=== PATIENT | male | born 1945 | race Caucasian/White ===

== ENCOUNTER 2020-01-11 07:32 | Inpatient (IN) | payer MEDICARE, OTHER, SELFPAY ==
[2020-01-11] VITALS (23 sets, daily range): BP systolic 119–202; BP diastolic 74–105; PULSE 53–89; RESP 15–27; TEMP 36–36.4; O2SAT 90–96
--- NOTE | ~2020-01-11 | XR_ITS ---
EXAMINATION: XR chest 2V 01/11/2020 08:20 INDICATION: Midsternal chest pain PROCEDURE: AP and lateral views of the chest COMPARISON: 11/04/2014 FINDINGS: The lungs are clear. The cardiomediastinal silhouette is within normal limits. There are no pleural effusions. There is no pneumothorax suspected. Status post median sternotomy for CABG. S evere osteoarthritis of the shoulders. IMPRESSION: 1: NO ACUTE CARDIOPULMONARY DISEASE. Reviewed, dictated and finalized at location [facility].
--- NOTE | 2020-01-11 08:01 | ED.CHESTPAIN ---
HPI - Chest Pain General Chief Complaint: Chest Pain Stated Complaint: CP Time Seen by Provider: 01/11/20 07:35 History of Present Illness HPI narrative: Patient is a 74-year-old male who presents ER with chest pain. Woke up this morning at 6 AM with the chest pain. Its left-sided. Occasionally goes down towards his stomach. It feels similar to when he had heart issues in 2019 that led to his CABG. He has no diaphoresis/nausea/vomiting/shortness of breath. He is found no aggravating or alleviating factors. Reports his blood pressures been running higher in the 130s over 90s recently. Currently systolic blood pressure is 202 mmHg. Related Data Home Medications Medication Instructions Recorded Confirmed aspirin 81 mg tablet,delayed 81 mg PO DAILY 03/27/19 01/11/20 release finasteride 5 mg tablet 5 mg PO DAILY 03/27/19 01/11/20 metoprolol tartrate 25 mg tablet 25 mg PO BID tablet 03/27/19 01/11/20 Allergies Allergy/AdvReac Type Severity Reaction Status Date / Time venom-honey bee Allergy Severe HIVES Verified 01/11/20 08:17 atorvastatin Allergy Unknown Unknown Verified 01/11/20 08:17 Review of Systems Review of Systems: All systems reviewed & are unremarkable except as noted in HPI and below Constitutional: Constitutional: Denies chills, Denies fever(s) and Denies weakness Cardiovascular: Cardiovascular: Reports chest pain and Denies radiating jaw, neck or arm pain Respiratory: Respiratory: Denies cough and Denies dyspnea Gastrointestinal: Gastrointestinal: Reports abdominal pain, Denies nausea and Denies vomiting [facility] Past Medical History Medical History (Updated 01/11/20 @ 17:46 by Ned Chin MD) Benign prostatic hyperplasia with lower urinary tract symptoms Coronary artery disease involving [place] coronary artery of [place] heart Hypertensive heart disease without congestive heart failure Idiopathic chronic gout, unspecified site, without tophus (tophi) LIZA on CPAP Pure hypercholesterolemia Status post placement of bare metal coronary artery stent Surgical History Surgical History S/P CABG (coronary artery bypass graft) Family History Family History Sibling Family history of diabetes mellitus in first degree relative Other Diabetes mellitus Social History Social History (Updated 12/19/19 @ 14:32 by Pura Vallejo) Smoking status: Never smoker Second hand tobacco smoke exposure: No Alcohol intake: current Drinks per week: 8 Substance use: never Substance use type: does not use Gender identity (if verbalized by the patient): Male Spiritual care concerns: No Exam Narrative: Exam Narrative: GENERAL: Well-appearing, well-nourished, and in no acute distress. HEAD: Normocephalic, atraumatic. ENT: Mucous membranes moist. CHEST: Clear to auscultation. No respiratory distress. HEART: Regular rate and rhythm. No murmur heard. Normal peripheral pulses. ABDOMEN: Soft, nontender, nondistended. EXTREMITIES: Normal range of motion. No edema. SKIN: Warm, dry, no rash. NEURO: Alert and oriented x3. Course Course Emergency Course: Blood pressure and chest pain improved with nitroglycerin. Second troponin elevated. Admit to the cardiology service. No heparin recommend at this time. Vital Signs Vital signs: Vital Signs Temperature 97.5 F L 01/11/20 07:45 Pulse Rate 73 01/11/20 07:45 Respiratory Rate 20 01/11/20 07:45 Blood Pressure 202/105 H 01/11/20 07:45 Pulse Oximetry 96 01/11/20 07:45 Temperature 96.8 F L 01/11/20 16:00 Pulse Rate 68 01/11/20 16:00 Respiratory Rate 18 01/11/20 16:00 Blood Pressure 157/85 H 01/11/20 16:00 Pulse Oximetry 95 01/11/20 16:00 MDM - Chest Pain Lab Data Result diagrams: 01/11/20 07:57 01/11/20 07:57 Labs: Lab Results 01/11/20 01/11/20 01/11/20 Range/U
[2020-01-11] MEDS: ASPIRIN 81 MG CHEWABLE TABLET 324 MG PO (08:06)
[2020-01-11] MEDS: NITROGLYCERIN SL 0.4 MG TABLET SUBLINGUAL (08:06)
[2020-01-11 08:19] LABS: Basophils Absolute Auto 0.1 K/mm3 (0.0-0.1); Basophils Percent Auto 0.8 % (0.2-1.2); Eosinophils Absolute Auto 0.2 K/mm3 (0-0.3); Eosinophils Percent Auto 2.6 % (0-4.4); Hematocrit 49.2 % (42.0-52.0); Hemoglobin 16.4 g/dL (14.0-18.0); Immature Granulocyte Absolute 0.02 K/mm3 (0.00-0.031); Immature Granulocyte Percent A 0.3 % (0-0.5); Lymphocytes Absolute Auto 2.52 K/mm3 (0.9-3.2); Lymphocytes Percent Auto 37.9 % (18.3-44.2); Mean Corpuscular HGB Conc 33.3 g/dl (32-36); Mean Corpuscular Hemoglobin 31.6 pg (26-34); Mean Corpuscular Volume 94.8 fl (80-100); Mean Platelet Volume 10.8 fl (7.4-10.4); Monocytes Absolute Auto 0.6 K/mm3 (0.1-0.6); Monocytes Percent Auto 8.9 % (2.6-8.5); Neutrophils Absolute Auto 3.3 K/mm3 (1.3-6.7); Neutrophils Percent Auto 49.5 % (45.5-73.1); Platelet Count Result 228 k/mm3 (150-375); Red Blood Count 5.19 M/mm3 (4.6-6.20); Red Cell Distribution Width 13.3 % (11.5-14.5); White Blood Count 6.7 K/mm3 (4.5-10.0)
[2020-01-11 08:30] LABS: Prothrombin Time 12.5 Seconds (11.1-14.7)
[2020-01-11 08:31] LABS: Alanine Aminotransferase 31 U/L (4-50); Albumin Level 4.4 g/dL (3.5-5.1); Alkaline Phosphatase 49 U/L (38-126); Anion Gap 7 mmol/L (8-16); Aspartate Amino Transferase 32 U/L (17-59); Bilirubin,Total 0.3 mg/dL (0.2-1.3); Blood Urea Nitrogen 27 mg/dL (9-20); Calcium 9.5 mg/dL (8.4-10.2); Carbon Dioxide 26 mmol/L (22-30); Chloride 107 mmol/L (98-107); Estimated CRCL calculation 51 ml/min; Estimated Glomerular Filt Rate 59; Glucose 157 mg/dL (75-110); Lipase 91 U/L (23-300); Partial Thromboplastin Time 25.6 SECONDS (22.3-36.8); Potassium 3.9 mmol/L (3.4-5.0); Sodium 140 mmol/L (137-145)
[2020-01-11 08:42] LABS: Troponin I < 0.012 ng/mL (0.000-0.034)
--- NOTE | 2020-01-11 09:36 | ECG_ITS ---
Measurements Intervals [place] Rate: 68 P: 53 MT: 179 QRS: 17 QRSD: 97 T: 35 QT: 397 QTc: 425 Interpretive Statements SINUS RHYTHM EARLY PRECORDIAL R/S TRANSITION BASELINE WANDER- I, II, AVR, AVL, AVF, V1-V6 BORDERLINE ECG Electronically Signed On 01-11-2020 10:46:23 CDT by Cal Rodriguez D.O.
[2020-01-11 11:32] LABS: Troponin I 0.142 ng/mL (0.000-0.034)
--- NOTE | 2020-01-11 11:40 | ECG_ITS ---
Measurements Intervals [place] Rate: 61 P: 46 NM: 172 QRS: -1 QRSD: 85 T: 24 QT: 419 QTc: 423 Interpretive Statements SINUS RHYTHM EARLY PRECORDIAL R/S TRANSITION BORDERLINE T WAVE ABNORMALITY- INFERIOR LEADS BORDERLINE ECG Electronically Signed On 01-11-2020 12:15:41 CDT by Cal Rodriguez D.O.
--- NOTE | 2020-01-11 13:02 | PM.IMHP ---
H&P: HPI History of Present Illness Date/Time: 01/11/20 13:02 Chief complaint: nstemi,hypertension Narrative: Juvencio Pérez is a 74 year old male With a known history of coronary artery disease established with our practice admitted this afternoon after being seen and evaluated in the emergency room because of an episode of chest pain that occurred earlier today. The patient states that he was in his usual state of good health when this morning he began to experience some retrosternal chest pain that was initially mild and then became moderate to severe over the course of about an hour of observing this at home. He also states that the night before last he had a difficult night because of a poor night sleep he cut does not state he was having any chest pain or dyspnea or any other symptoms at that time but just states that he slept poorly. When he was experiencing the pain this morning though he became concerned because of his history he awakened his who talk about it for a little while and then they decided to come to the emergency room for evaluation. In the emergency department his ECG showed sinus rhythm with some modest nonspecific T-wave changes but no significant ST segment deviation. He was given a nitro lingual tablet which apparently improved and then resolve the symptoms after a short time. He had a troponin level done which was normal the 2nd troponin level however pete out of normal range to 0.1 and the decision was made to admit him to the hospital. I am seeing the patient in the emergency room as he is awaiting for his bed upstairs he is in good spirits feels well and has no other symptoms. Leading up to this event this morning he has been doing well he does not have any history of exertional chest pain in fact he is an active man who states he played golf yesterday and had no difficulty walking the golf course. The patient does have coronary artery disease which was identified in April of 2018. He presented to this hospital with acute coronary syndrome and was found to have diffuse multivessel coronary disease angiographically. He did have modest non flow limiting left main disease as well as calcific disease in the LAD with lesions that were more proximal near a diagonal branch and in the midportion as well. His circumflex had high-grade ostial stenosis but was very small consisting of only 1 small OM branch. The right coronary artery was very large and described as hyper dominant. The right coronary was extensively calcified and had high-grade stenosis in the midportion as well as in the distal portion. left ventricular systolic function was well maintained. He was transferred at that time to [facility] for surgical revascularization. He received a left internal mammary graft to the LAD and a sequential saphenous vein graft to the RPDA and largest RPL branch. The circumflex was very small and not suitable for grafting. Royce I did review his angiograms just before this consultation from April of 2018 he also has some distal small-vessel disease and a more distal RPL branch that was also not grafted. In this setting we are seeing him in consultation. His medical regimen now consists of aspirin, metoprolol and rosuvastatin. Review of Systems Constitutional: Constitutional: Reports no additional constitutional complaints Eyes: Eyes: Reports no additional eye complaints ENT: Reports system reviewed and no additional complaints, except as documented Cardiovascular: Cardiovascular: Reports as per HPI and Reports chest pain Respiratory: Respiratory: Reports no additional respiratory complaints Gastrointestinal: Gastrointestinal: Reports heartburn Musculoskeletal: Musculoskeletal: Reports arthralgias Integumentary/Breasts: Skin/Breast: Reports system reviewed and no additional complaints, except as docu Neurologic: Reports system reviewed and no additional complaints, except as documented [facility]
[2020-01-11 14:24] LABS: Troponin I 0.693 ng/mL (0.000-0.034)
[2020-01-11] MEDS: ISOSORBIDE MONONITRATE 60 MG TAB.ER.24H PO (17:42)
[2020-01-11] MEDS: CLOPIDOGREL BISULFATE 300 MG TABLET PO (17:42)
[2020-01-11] MEDS: METOPROLOL TARTRATE 25 MG TABLET PO (20:32)
[2020-01-12] VITALS (18 sets, daily range): BP systolic 99–131; BP diastolic 64–85; PULSE 58–89; RESP 16–22; TEMP 36.1–36.9; O2SAT 93–99; BMI 34.3
[2020-01-12] MEDS: allopurinoL 100 MG TABLET PO (10:37)
[2020-01-12] MEDS: METOPROLOL TARTRATE 25 MG TABLET PO ×2 (10:38→20:43)
[2020-01-12] MEDS: ASPIRIN 81 MG ENTERIC TABLET PO (10:38)
[2020-01-12] MEDS: ISOSORBIDE MONONITRATE 60 MG TAB.ER.24H PO (10:38)
[2020-01-12] MEDS: CLOPIDOGREL BISULFATE 75 MG TABLET PO (10:38)
[2020-01-12] MEDS: FINASTERIDE 5 MG TABLET PO (10:38)
--- NOTE | 2020-01-12 11:00 | PM.PNCARD ---
Progress Note: A&P Assessment and Plan (1) Non-ST elevation [place] (NSTEMI): Code(s): I21.4 - Non-ST elevation (NSTEMI) myocardial infarction Status: Acute Assessment and Plan: ACS/NSTEMI. Thought 2nd small vessel disease that could not be bypassed Benign-appearing EKG Added Plavix and isosorbide Ongoing intermittent angina at rest. Will check another EKG and keep another day; if no more problems poss DC tmr. If recurrent problems, cath on Tuesday. (2) Hypertension: Code(s): I10 - Essential (primary) hypertension Status: Acute Assessment and Plan: BP at goal (3) Pure hypercholesterolemia: Code(s): E78.00 - Pure hypercholesterolemia, unspecified Status: Acute Assessment and Plan: Takes rosuvastatin at home. Resume. (4) LIZA on CPAP: Code(s): G47.33 - Obstructive sleep apnea (adult) (pediatric); Z99.89 - Dependence on other enabling machines and devices Status: Acute Assessment and Plan: OK to use home CPAP Subjective Date/time seen: 01/12/20 11:00 FU CAD and ACS/NSTEMI DAte of service: 01/12/2020 Pt had 2 hours of nagging, annoying 2/10 CP last pm at rest asso w/ indigestion. H/A 2nd to nitrates relieved w/ IV Tylenol. Otherwise up and about in room w/o difficulty. visitng; brought in CPAP to help pt sleep better. Review of Systems Constitutional: Constitutional: Reports difficulty sleeping Cardiovascular: Cardiovascular: Reports chest pain and Denies pedal edema Respiratory: Respiratory: Denies dyspnea on exertion Gastrointestinal: Gastrointestinal: Denies hematochezia and Reports heartburn Genitourinary: Genitourinary: Denies hematuria Musculoskeletal: Musculoskeletal: Reports no additional musculoskeletal complaints Integumentary/Breasts: Skin/Breast: Denies rash Neurologic: Reports headache(s) Psychiatric: Psychiatric: Denies behavioral changes Hematologic/Lymphatic: Hematologic/Lymphatic: Denies easy bleeding Exam Const: General: comfortable and no acute distress Eyes: EOM: EOMs intact bilaterally Neck: Neck: supple Resp: Auscultation: clear to auscultation bilaterally Cardio: Rate: regular rate Rhythm: regular rhythm Heart sounds: no murmurs GI: Inspection: non-distended GI Palp: Yes Soft to palpation, No Firmness to palpation present (GI) and No Tenderness to palpation present (GI) Skin: General skin exam: normal color and no rashes or lesions noted Neuro: Speech: normal speech Motor exam (neuro): Normal motor muscle tone present throughout Extrem: General: no pedal edema Psych: Mental Status: mental status grossly normal Objective Data Vital Signs Vital Signs: Vital Signs - 24 hr 01/11/20 11:48 01/11/20 16:00 01/11/20 18:00 Temperature 96.8 F L Pulse Rate 55 L 57 L 67 Respiratory Rate 17 18 Blood Pressure 149/79 H 157/85 H Pulse Oximetry 95 95 01/11/20 19:25 01/11/20 20:00 01/11/20 20:32 Temperature 97.6 F Pulse Rate 75 89 69 Respiratory Rate 18 18 Blood Pressure 138/83 Pulse Oximetry 94 94 01/11/20 22:00 01/12/20 00:00 01/12/20 02:00 Temperature 98.1 F Pulse Rate 75 77 65 Respiratory Rate 16 Blood Pressure 117/74 Pulse Oximetry 93 01/12/20 04:00 01/12/20 06:00 01/12/20 07:58 Temperature 98.5 F 97.0 F L Pulse Rate 66 71 70 Respiratory Rate 18 21 H Blood Pressure 104/70 122/67 Pulse Oximetry 95 99 01/12/20 08:00 01/12/20 10:38 Temperature Pulse Rate 70 82 Respiratory Rate 21 H Blood Pressure Pulse Oximetry 99 Intake/Output Intake/Output: Intake & Output 01/09/20 01/10/20 01/11/20 01/12/20 23:59 23:59 23:59 23:59 Intake Total 560 760 Output Total 400 600 Balance 160 160 Meds/Results Medications: Active Medications Gen
--- NOTE | 2020-01-12 11:14 | ECG_ITS ---
Measurements Intervals [place] Rate: 75 P: 43 MT: 170 QRS: 1 QRSD: 92 T: 28 QT: 379 QTc: 425 Interpretive Statements SINUS RHYTHM INCOMPLETE RIGHT BUNDLE BRANCH BLOCK CONSIDER INFERIOR INFARCT, AGE INDETERMINATE ABNORMAL ECG Electronically Signed On 01-12-2020 17:35:24 CDT by Cal Rodriguez D.O.
[2020-01-12] MEDS: ROSUVASTATIN 10 MG TABLET PO (13:32)
[2020-01-12] MEDS: ACETAMINOPHEN 500 MG TABLET 1000 MG PO (18:21)
[2020-01-13] VITALS (11 sets, daily range): BP systolic 104–131; BP diastolic 76–87; PULSE 65–84; RESP 18–20; TEMP 35.9–36.1; O2SAT 94–97
[2020-01-13] MEDS: FINASTERIDE 5 MG TABLET PO (08:46)
[2020-01-13] MEDS: ASPIRIN 81 MG ENTERIC TABLET PO (08:46)
[2020-01-13] MEDS: CLOPIDOGREL BISULFATE 75 MG TABLET PO (08:46)
[2020-01-13] MEDS: allopurinoL 100 MG TABLET PO (08:46)
[2020-01-13] MEDS: METOPROLOL TARTRATE 25 MG TABLET PO (08:47)
[2020-01-13] MEDS: ROSUVASTATIN 10 MG TABLET PO (08:47)
[2020-01-13] MEDS: ISOSORBIDE MONONITRATE 60 MG TAB.ER.24H PO (08:47)
--- NOTE | 2020-01-13 15:50 | PM.DS ---
DS: Admitting Diagnosis Admitting Diagnosis Admitting Diagnosis: nstemi,hypertension DS: Discharge Diagnosis Discharge Diagnosis (1) Non-ST elevation [place] (NSTEMI): Code(s): I21.4 - Non-ST elevation (NSTEMI) myocardial infarction Status: Acute (2) Hypertension: Code(s): I10 - Essential (primary) hypertension Status: Acute (3) Coronary artery disease involving [place] coronary artery of [place] heart: Code(s): I25.10 - Atherosclerotic heart disease of [place] coronary artery without angina pectoris Status: Acute DS: Summary Hospital Course Reason for hospitalization: Chest discomfort Hospital Course: The patient has a history of CABG in 2019, and is followed by Dr. De La Torre for his CAD. He received a left internal mammary graft to the LAD and a sequential saphenous vein graft to the RPDA and largest RPL branch. The circumflex was very small and not suitable for grafting. He also has some distal small-vessel disease and a more distal RPL branch that was also not grafted. His EKGs were all normal. His peak troponin was 0.69. Dr. De La Torre thought his problems were likely related to his small vessel disease and recommended a trial of medical therapy rather than cardiac catheterization/PCI as an initial approach. He was started on isosorbide and Plavix. He had some mild vague chest discomfort on the night of January 10, and then perhaps the morning of the , but thereafter he has been up and ambulating with no anginal symptoms and feeling well. He is eager for discharge. He was bothered by headaches from the nitrates, relieved with Tylenol. Advised him that the headaches will likely will gradually dissipate and continue Tylenol p.r.n.. He his blood pressure and heart rates appeared well controlled. If the patient continues to have anginal symptoms, we can reconsider this approach and pursue cardiac catheterization. His was adviced to give us a call if he has recurrent problems, and to go to the ER if he has intense or prolonged chest discomfort. Time Spent with Patient Time attestation: Total time spent providing and/or coordinating discharge services: 40 minutes Exam Const: General: comfortable and no acute distress HENMT: Mouth: Yes moist mucous membranes Eyes: General: appearance normal, both eyes and all related structures Neck: Neck: supple Resp: Effort & Inspection: normal respiratory effort Auscultation: clear to auscultation bilaterally Cardio: Rate: regular rate Rhythm: regular rhythm Heart sounds: no murmurs GI: Inspection: non-distended GI Palp: Yes Soft to palpation Skin: General skin exam: no rashes or lesions noted Neuro: Motor exam (neuro): Normal motor muscle tone present throughout Extrem: General: no pedal edema Psych: Mental Status: mental status grossly normal Affect: normal affect DS: Data Data Completed and Pending Completed studies during hospitalization: EKGs were normal. Chest x-ray was normal Troponins: 0.059, 0.142, and 0.69 BMP was remarkable for a blood sugar of 157. CBC was basically normal. Pending studies at discharge: None Procedures/Treatments: None Discharge Plan Discharge Attending physician on discharge: Andria Burciaga Discharging Clinician: Andria Burciaga Patient Disposition: Home, Self-Care Activity: as tolerated Diet: heart healthy Discharge Instructions: CARDIOLOGY DISCHARGE INSTRUCTIONS: ANGINA: Prescriptions for nitroglycerin, Plavix/clopidogrel, and isosorbide were sent to your pharmacy. If you have recurrent angina sit and rest, and take nitroglycerin. If the discomfort is not resolved by 3 nitroglycerins, or if it appears intense and very uncomfortable, then go to the emergency room. Otherwise call and let us know if you are having further chest discomfort. ACTIVITY: No lifting, pushing or pulling more than 10 pounds for 1 w
== END 2020-01-13 16:35 | disposition home or self-care (01) | DRG 282 ==
LOC: ANHED 11:43 → ANHIMU 12:13
PROVIDERS: Admitting Provider Specialist; Emergency Provider Emergency Medicine; PCP Family Medicine; Visit Provider Internal Medicine Cardiovascular Disease
DX: I21.4 Non-ST elevation (NSTEMI) myocardial infarction (principal); I11.9 Hypertensive heart disease without heart failure; I25.10 Atherosclerotic heart disease of native coronary artery without angina pectoris; E78.00 Pure hypercholesterolemia, unspecified; G47.33 Obstructive sleep apnea (adult) (pediatric); N40.0 Benign prostatic hyperplasia without lower urinary tract symptoms; M1A.00X0 Idiopathic chronic gout, unspecified site, without tophus (tophi); Z79.82 Long term (current) use of aspirin; Z79.899 Other long term (current) drug therapy; Z95.1 Presence of aortocoronary bypass graft; Z95.5 Presence of coronary angioplasty implant and graft; Z99.89 Dependence on other enabling machines and devices
CPT/HCPCS: 36415; 71046; 80053; 83690; 84484; 85025; 85610; 85730; 93005; 99285; A9270; G0378; J0131

== ENCOUNTER → 2021-07-25 00:06 | Outpatient (CLI) | payer MEDICARE, OTHER, SELFPAY ==
[2021-07-25 11:52] LABS: Influenza A QL RT-PCR Negative (Negative); Influenza B QL RT-PCR Negative (Negative); SARS-CoV-2 RNA PCR Positive
== END ==
PROVIDERS: PCP Family Medicine; Visit Provider Physician Assistant
DX: U07.1 COVID-19 (principal)
CPT/HCPCS: 87502; C9803; U0003; U0005

== ENCOUNTER 2021-08-27 14:39 | Emergency (ER) | payer MEDICARE, OTHER, SELFPAY ==
--- NOTE | ~2021-08-27 | CT_ITS ---
EXAMINATION: CT abdomen pelvis wo con DATE: 08/27/2021 18:19 INDICATION: Left-sided abdominal pain TECHNIQUE: Computed tomography (CT) of the abdomen and pelvis was performed without intravenous contr ast. Automated exposure control and iterative reconstruction technique were employed. Exam dose: 142 3.66 mGy-cm total exam DLP. COMPARISON: 07/11/2013 CT chest abdomen pelvis FINDINGS: Status post sternotomy. There is discoid atelectasis or scarring in the lower lobes, right greater than left. Normal heart size. Prominent coronary calcification. No pericardial or pleural effusion. Liver, gallbladder, bile ducts and spleen are unremarkable. There are 2 pancreatic calcifications consistent with chronic pancreatitis. No pancreatic duct dilata tion. Normal morphology of the adrenal glands. Bilateral parapelvic renal cysts No renal mass lesion or urinary tract calculus or hydroureteronephrosis is noted otherwise. Prostate enlargement and calcifications. There is mild diffuse thickening of the urinary bladder wall , likely due to prostate enlargement. There is extensive calcification of the abdominal aorta and prominent calcifications at the origins o f the celiac, superior mesenteric and renal arteries. No abdominal aortic aneurysm. No intraperitonea l or retroperitoneal or pelvic mass lesion or adenopathy or ascites. No evidence of appendicitis. There is mild diverticulosis but no diverticulitis of the left and right colon. No bowel obstruction or free air. There is severe degenerative disc disease and retrolisthesis at L2-3. There is severe degenerative disc disease at L5-S1. Bilateral L5 pars interarticularis defects with associated borderline grade 1/grade 2 anterolisthesis at L5-S1. IMPRESSIONS: Extensive atherosclerotic disease; status post sternotomy Mild discoid atelectasis or scarring in the lower lobes Parapelvic renal cysts Prostate enlargement and calcifications, likely accounting for some thickening of the urinary bladder wall Mild diverticulosis of left and right colon Bilateral L5 pars interarticularis defects with associated borderline grade 1/grade 2 anterolisthesis at L5-S1 Severe degenerative disc disease at L2-3 and L5-S1 Reviewed, dictated and finalized at [facility]. Reviewed, dictated and finalized at location [facility]. IMPRESSIONS: Extensive atherosclerotic disease; status post sternotomy Mild discoid atelectasis or scarring in the lower lobes Parapelvic renal cysts Prostate enlargement and calcifications, likely accounting for some thickening of the urinary bladder wall Mild diverticulosis of left and right colon Bilateral L5 pars interarticularis defects with associated borderline grade 1/g rade 2 anterolisthesis at L5-S1 Severe degenerative disc disease at L2-3 and L5-S1
[2021-08-27 15:18] VITALS: BP 145/82; PULSE 78; RESP 18; TEMP 36.2; O2SAT 95
[2021-08-27 15:53] LABS: Basophils Absolute Auto 0.1 K/mm3 (0.0-0.1); Eosinophils Absolute Auto 0.2 K/mm3 (0-0.3); Eosinophils Percent Auto 1.9 % (0-4.4); Hematocrit 47.1 % (42.0-52.0); Hemoglobin 15.6 g/dL (14.0-18.0); Immature Granulocyte Absolute 0.04 K/mm3 (0.00-0.031); Immature Granulocyte Percent A 0.4 % (0-0.5); Lymphocytes Absolute Auto 3.67 K/mm3 (0.9-3.2); Lymphocytes Percent Auto 41.3 % (18.3-44.2); Mean Corpuscular HGB Conc 33.1 g/dl (32-36); Mean Corpuscular Hemoglobin 31.2 pg (26-34); Mean Corpuscular Volume 94.2 fl (80-100); Monocytes Absolute Auto 0.7 K/mm3 (0.1-0.6); Monocytes Percent Auto 8.1 % (2.6-8.5); Neutrophils Absolute Auto 4.2 K/mm3 (1.3-6.7); Neutrophils Percent Auto 47.3 % (45.5-73.1); Platelet Count Result 288 k/mm3 (150-375); Red Cell Distribution Width 13.7 % (11.5-14.5); White Blood Count 8.9 K/mm3 (4.5-10.0)
[2021-08-27 15:58] LABS: Appearance Urine Clear (Clear); Bilirubin Urine Negative (Negative); Blood Urine Negative (Negative); Color Urine Yellow (Yellow); Glucose Urine UA Negative (Negative); Ketones Urine Negative (Negative); Leukocyte Esterase Ur 2+ LEU/UL (Negative); Nitrate Urine Negative (Negative); Protein Urine Negative (Negative); Urobilinogen Urine 0.2 mg/dL (<2.0); pH Urine 5.5 (5.0-9.0)
[2021-08-27 16:11] LABS: Bacteria Urine Trace /hpf; Mucus Urine Rare /lpf; Squamous Epithelial Cell Urine Rare /hpf (Few); WBC Urine 16-20 /hpf
[2021-08-27 16:15] LABS: Alanine Aminotransferase 29 U/L (6-50); Albumin Level 4.5 g/dL (3.5-5.1); Alkaline Phosphatase 60 U/L (38-126); Anion Gap 8 mmol/L (8-16); Aspartate Amino Transferase 35 U/L (17-59); Bilirubin,Total 0.4 mg/dL (0.2-1.3); Blood Urea Nitrogen 26 mg/dL (9-20); Calcium 9.3 mg/dL (8.4-10.2); Carbon Dioxide 26 mmol/L (22-30); Chloride 105 mmol/L (98-107); Estimated CRCL calculation 54 ml/min; Estimated Glomerular Filt Rate > 60; Glucose 88 mg/dL (65-110); Potassium 4.3 mmol/L (3.4-5.0); Sodium 139 mmol/L (137-145)
[2021-08-27 16:16] LABS: Add Urine Microscopic? YES
--- NOTE | 2021-08-27 17:16 | ED.BACK ---
HPI - Back Pain/Injury General Chief Complaint: Back Pain/Injury Stated Complaint: L sided abd/back pain Time Seen by Provider: 08/27/21 17:10 Source: patient Mode of arrival: ambulatory Limitations: no limitations History of Present Illness HPI Narrative: This is a 76-year-old male that presents to the emergency department for left-sided abdominal pain. Reports the pain is constant and aching in nature. Radiates into his back. No associated symptoms. Denies fever, vomiting, dysuria, hematuria, or diarrhea. Related Data Home Medications Medication Instructions Recorded Confirmed aspirin 81 mg tablet,delayed 81 mg PO DAILY 03/27/19 05/20/21 release (Adult Aspirin Regimen) finasteride 5 mg tablet 5 mg PO DAILY 03/27/19 05/20/21 metoprolol tartrate 25 mg tablet 25 mg PO BID 03/27/19 05/20/21 Allergies Allergy/AdvReac Type Severity Reaction Status Date / Time venom-honey bee Allergy Severe HIVES Verified 05/20/21 08:12 atorvastatin Allergy Unknown Unknown Verified 05/20/21 08:12 Review of Systems Review of Systems: CONSTITUTIONAL: Denies fever GASTROINTESTINAL: Reports abdominal pain. Denies nausea, vomiting, or diarrhea. GENITOURINARY: Denies dysuria or hematuria. All systems reviewed & are unremarkable except as noted in HPI and below PMFSH Past Medical History Medical History (Updated 08/27/21 @ 19:06 by Ana Candelaria PA-C) Benign prostatic hyperplasia with lower urinary tract symptoms Coronary artery disease involving [place] coronary artery of [place] heart Hypertensive heart disease without congestive heart failure Idiopathic chronic gout, unspecified site, without tophus (tophi) Obesity Old myocardial infarction LIZA on CPAP Pure hypercholesterolemia Status post placement of bare metal coronary artery stent Surgical History Surgical History S/P CABG (coronary artery bypass graft) Family History Family History Sibling Family history of diabetes mellitus in first degree relative Other Diabetes mellitus Social History Social History Smoking status: Never smoker Second hand tobacco smoke exposure: No Alcohol intake: current Drinks per week: 8 Substance use: never Substance use type: does not use Gender identity (if verbalized by the patient): Male Sexual Orientation (if Verbalized by the Patient): Straight or Heterosexual Spiritual care concerns: No Exam Narrative: GENERAL: Well-appearing, well-nourished, and in no acute distress. HEAD: Normocephalic, atraumatic. EYES: EOMI. CHEST: Clear to auscultation. No respiratory distress. No wheezes rales or rhonchi HEART: Regular rate and rhythm. No murmur heard. Normal peripheral pulses. ABDOMEN: Soft, nondistended, normal active bowel sounds. Mild tenderness to palpation throughout the left side of the abdomen, without guarding EXTREMITIES: Normal range of motion. No edema. SKIN: Warm, dry, no rash. NEURO: No focal deficits. Alert and oriented x3. PSYCH: Normal mood and affect Course Vital Signs Vital signs: Vital Signs Temperature 97.2 F L 08/27/21 15:18 Pulse Rate 78 08/27/21 15:18 Respiratory Rate 18 08/27/21 15:18 Blood Pressure 145/82 H 08/27/21 15:18 Pulse Oximetry 95 08/27/21 15:18 Oxygen Delivery Room Air 08/27/21 15:18 Temperature 97.2 F L 08/27/21 15:18 Pulse Rate 70 08/27/21 19:32 Respiratory Rate 16 08/27/21 19:32 Blood Pressure 133/80 08/27/21 19:32 Pulse Oximetry 95 08/27/21 19:32 Oxygen Delivery Room Air 08/27/21 18:09 MDM - Back Pain/Injury MDM Narrative Medical decision making narrative: Patient presents to the emergency department for left-sided abdominal pain present over the last couple of days. Patient is afebrile and nontoxic-appearing. His vitals are stable. CBC and metabolic panel wit
[2021-08-27 18:09] VITALS: BP 153/88; PULSE 70; RESP 14; O2SAT 99
--- NOTE | 2021-08-27 18:19 | PC.NURSE ---
Patient to radiology.
[2021-08-27 19:20] VITALS: BP 133/80; PULSE 72; RESP 18; O2SAT 97
[2021-08-27] MEDS: CIPROFLOXACIN 500 MG TAB PO (19:27)
[2021-08-27 19:32] VITALS: BP 133/80; PULSE 70; RESP 16; O2SAT 95
== END 2021-08-27 19:33 | disposition home or self-care (01) ==
PROVIDERS: Emergency Medicine; Emergency Provider Emergency Medicine; PCP Family Medicine
DX: N30.00 Acute cystitis without hematuria (principal); I11.9 Hypertensive heart disease without heart failure; I25.10 Atherosclerotic heart disease of native coronary artery without angina pectoris; I25.2 Old myocardial infarction
CPT/HCPCS: 36415; 74176; 80053; 81001; 85025; 87086; 96365; 99284; A9270; J0131

== ENCOUNTER → 2021-11-27 14:18 | Outpatient (CLI) | payer MEDICARE, OTHER, SELFPAY ==
--- NOTE | ~2021-11-27 | XR_ITS ---
EXAMINATION: XR knee RT 2V DATE: 11/27/2021 14:32 INDICATION: Right knee pain. TECHNIQUE: 2 views of right knee were obtained. COMPARISON: None. FINDINGS: Bone alignment is normal. No fracture. There is expansion of diaphysis of proximal fibula, likely an old healed fracture. There is mild tricompartmental osteoarthritis. No knee joint effusion. There are surgical clips in the medial soft tissues. IMPRESSION: 1. Mild right knee osteoarthritis. Reviewed, dictated and finalized at location [facility].
== END ==
PROVIDERS: PCP Family Medicine; Visit Provider Family Medicine
DX: M17.11 Unilateral primary osteoarthritis, right knee (principal)
CPT/HCPCS: 73560

== ENCOUNTER 2023-12-12 15:39 | Outpatient (CLI) | payer MEDICARE, OTHER, SELFPAY ==
--- NOTE | ~2023-12-12 | XR_ITS ---
XR chest 2V Ordering provider: Luis Enrique Hernandez MD History: 78 years Male with . R05.9 - Cough, unspecified . Comparison: January 11, 2020 FINDINGS: MEDIASTINUM: The cardiac silhouette is not enlarged. Postoperative changes in the mediastinum. LUNGS: No infiltrates, effusions or pneumothorax. OTHER: No free air under the diaphragm. IMPRESSION: No acute cardiopulmonary pathology. Reviewed, dictated and finalized at location A.
== END 2023-12-12 15:40 | disposition home or self-care (01) ==
PROVIDERS: PCP Family Medicine; Visit Provider Family Medicine
DX: R05.9 Cough, unspecified (principal)
CPT/HCPCS: 71046

== ENCOUNTER 2024-01-05 09:36 | Outpatient (CLI) | payer MEDICARE, OTHER, SELFPAY ==
--- NOTE | ~2024-01-05 | XR_ITS ---
Lumbosacral Spine: AP and lateral views Clinical History: Pain Findings: There are bilateral L5 pars interarticularis defects, with 12 mm anterolisthesis of L5 over S1. There is 4 mm retrolisthesis of L2 over L3. There is 3 mm retrolisthesis of L3 over L4. There is severe degenerative narrowing at L2-L3 and L5-S1, with moderate degenerative disc narrowing L3-L4. T here is advanced facet arthropathy throughout the lumbar spine. The sacroiliac joints are normally ou tlined. Impression: Bilateral L5 pars interarticularis defects, with 12 mm anterolisthesis of L5 over S1. 4 mm retrolisthesis of L2 over L3. 3 mm retrolisthesis of L3 over L4. Additional advanced degenerative spondylitic changes, as above. Reviewed, dictated and finalized at [facility]. Impression: Bilateral L5 pars interarticularis defects, with 12 mm anterolisthesis of L5 ov er S1. 4 mm retrolisthesis of L2 over L3. 3 mm retrolisthesis of L3 over L4. Additional advanced degenerative spondylitic changes, as above.
== END 2024-01-05 09:37 | disposition home or self-care (01) ==
LOC: MICIMG 09:42
PROVIDERS: PCP Physician Assistant Medical; Visit Provider Physician Assistant Medical
DX: M47.896 Other spondylosis, lumbar region (principal)
CPT/HCPCS: 72100

== ENCOUNTER 2024-04-17 21:50 | Emergency (ER) | payer MEDICARE, OTHER, SELFPAY ==
--- NOTE | ~2024-04-17 | CT_ITS ---
EXAMINATION: CTA chest abdomen pelvis, CT chest abdomen pelvis w con DATE: 04/18/2024 5:44 PUTTY MIXER INDICATION: Right-sided abdomen pain. TECHNIQUE: Computed tomographic angiography (CTA) of the chest, abdomen, and pelvis was performed wit h 100 mL Omnipaque-350 intravenous contrast. The dose-length product was 1613.33 (accession [id number]), 1696.27 (accession [id number]) mGy-cm. Maximum intensity projection 3D-reconstructions of the aorta and other arteries were constructed by the technologist on a separate workstation. CT ches t abdomen pelvis with contrast also performed preliminarily. COMPARISON: CT abdomen dated 08/27/2021. FINDINGS: CHEST CTA: Small right pleural hemothorax. Mediastinal shift to the left. Elevated right diaphragm. No evidence for aortic aneurysm or dissection. Status post median sternotomy. There is dependent atelectasis in t he right lower lobe. No pneumothorax. No suspicious pulmonary nodules or masses. There is a displaced fracture right seventh costal cartilage with associated chest wall hemorrhage. There is evidence for active bleed. No thoracic lymphadenopathy. ABDOMEN AND PELVIS CTA: The liver, spleen, pancreas, adrenal glands and kidneys are unremarkable. Nonobstructive bowel gas pa ttern. No free air or free fluid. Mildly prominent prostate gland. No evidence for aortic aneurysm or dissection. Moderate lumbar spondylosis with grade 1 spondylolisthesis at L5-S1. No definite active extravasation on the study performed at 5:28 AM. IMPRESSION: 1. Right seventh costal cartilage displaced fracture anteriorly without evidence for associated chest wall hemorrhage. No evidence for active extravasation on the current study. No pneumothorax. 2: Moderate right hemothorax with mediastinal shift to the left. 3: No acute abdominal abnormality. Reviewed, dictated and finalized at location A. Y MIXER IMPRESSION: 1. Right seventh costal cartilage displaced fracture anteriorly without evidenc e for associated chest wall hemorrhage. No evidence for active extravasation on the current study. No pneumothorax. 2: Moderate right hemothorax with mediastinal shift to the left. 3: No acute abdominal abnormality.
--- NOTE | ~2024-04-17 | XR_ITS ---
EXAMINATION: XR chest 2V DATE: 04/17/2024 22:16 INDICATION: Right chest pain. TECHNIQUE: Frontal and lateral views of the chest were obtained. COMPARISON: Chest 2 views 12/12/23 FINDINGS: There is no pneumonia, pleural effusion, or pneumothorax. The heart size is normal. Median sternotomy wires and mediastinal surgical clips are seen, likely from prior coronary artery bypass gr afting. There are suture anchors in right humeral head. IMPRESSION: 1. No acute cardiopulmonary disease. Reviewed, dictated and finalized at location A. OSITION WORKER
--- NOTE | 2024-04-17 21:51 | ECG_ITS ---
Test Date: 2024-04-17 21:54:37 Measurements Intervals [place] Rate: 99 P: 51 RI: 152 QRS: 12 QRSD: 81 T: 1 QT: 324 QTc: 416 Interpretive Statements SINUS RHYTHM POSSIBLE LEFT ATRIAL ENLARGEMENT [-0.1mV P WAVE IN V1/V2] NONSPECIFIC ST & T-WAVE ABNORMALITY BASELINE ARTIFACT LIMITS INTERPRETATION No previous ECG available for comparison Electronically Signed On 04-18-2024 15:54:30 GRAPHIC PRODUCTION ARTIST by Heriberto Linares M.D.
--- OUTSIDE RECORDS SUMMARY | 2024-04-17 21:52 | XMS_ITS | Referral Summary ---
Author [place] [facility] [place] [address] Address [address] [place] [address] Care Team Providers Care Barrel Ribs Solderer Name Role Phone Luis Enrique Hernandez MD Primary Care Provider Allergies No known active allergies Medications allopurinol (ZYLOPRIM) 100 mg tablet take 1 tablet (100MG) by oral route every day 0 2 Active finasteride (PROSCAR) 5 mg tablet take 1 tablet (5MG) by oral route every day 0 2 Active rosuvastatin (CRESTOR) 10 mg tablet take 1 tablet by oral route every day 90 2 7 Active aspirin 325 mg tablet Take 1 tablet (325 mg total) by mouth daily. 9 Active nitroglycerin (NITROSTAT) 0.4 mg SL tablet TK 1 T UNDER THE TONGUE Q 5 MIN PRF CHEST PAIN DIRECTED BY DOCTOR 0 Active acetaminophen (Tylenol Extra Strength) 500 mg tablet Take 1 tablet (500 mg total) by mouth nightly 1 Active clopidogreL (PLAVIX) 75 mg tablet TAKE 1 TABLET(75 MG) BY MOUTH EVERY MORNING 90 tablet 3 4 Active metoprolol tartrate (LOPRESSOR) 25 mg immediate release tablet TAKE 1 TABLET BY MOUTH TWICE DAILY 180 tablet 2 4 Active isosorbide mononitrate ER (IMDUR) 60 mg 24 hr tablet TAKE 1 TABLET(60 MG) BY MOUTH DAILY 90 tablet 2 4 Active Active Problems Problem Noted Date Diagnosed Date Hx of CABG 06/20/2018 Coronary artery disease involving [place] coronar y artery 09/09/2016 History of coronary artery stent placement 09/09 Social History Tobacco Use Types Packs/Day Years Used Date Smoking Tobacco: Never Smokeless Tobacco: Never Tobacco Cessation:Counseling Given: Not Answered Alcohol Use Standard Drinks/Week Comments Yes 0 (1 standard drink = 0.6 oz pur e alcohol) Sex and Gender Information Value Date Recorded Sex Assigned at Not on file 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 Gender Identity Not on file Sexual Orientation Not on file Last Filed Vital Signs Vital Sign Reading Time Taken Comments Blood Pressure 130/80 09/20/2023 9:30 AM CDT Pulse 80 09/20/2023 9:30 AM CDT Temperature 36.3 ??C (97.3 ??F) 06/07/2018 10:40 AM C DT Respiratory Rate 20 06/07/2018 10:40 AM CDT Oxygen Saturation 96% 09/20/2023 9:30 AM CDT Inhaled Oxygen Concentration - - Weight 93.7 kg (206 lb 8 oz) 09/20/2023 9:30 AM CDT Height 167.6 cm (5' 6 ) 09/20/2023 9:30 AM CDT Body Mass Index 33.33 09/20/2023 9:30 AM CDT Plan of Treatment Not on file Insurance MEDICARE [facility] Address: [facility] [address] [place] [address] [facility] Advance Directives For more information, please contact: [phone] * Full Code (Latest Code Status on File) Date Activated Date Inactivated Comments 05/19/2018 9:19 PM * Full Code Date Activated Date Inactivated Comments 05/13/2018 2:28 PM 05/17/2018 3:24 PM * Full Code Date Activated Date Inactivated Comments 05/12/2018 7:13 PM 05/13/2018 2:28 PM Care Teams Barrel Ribs Solderer Relationship Specialty Start Date End Date Luis Enrique Hernandez MD [address] [place] [address] PCP - General 02/07/12
--- OUTSIDE RECORDS SUMMARY | 2024-04-17 21:52 | XMS_ITS | Clinical Summary ---
Author Organization [facility] [place] [address] Address [address] [place] [address] Care Team Providers Care Grocery Clerk Name Role Phone Luis Enrique Hernandez MD [...] of CABG 06/20/2018 Coronary artery disease involving [place] coronar y artery 09/09/2016 History of coronary artery stent placement 09/09 Surgical History Surgery Date Site/Laterality Comments CORONARY STENT PLACEMENT 05/19/2009 - 06/18/2009 3 x 23 mm Promus to the LAD, 4 x 12 mm Promus proximal RCA, 2.5 x 8 mm Promus to PDA ROTATOR CUFF REPAIR Bilateral CORONARY ARTERY BYPASS GRAFT 05/13/2018 CABGx3 Medical History Medical History Date Comments Chronic coronary artery disease 2009 Right coronary left anterior descending stenting in 2009 Hypertension Hyperlipidemia Rotator cuff arthropathy of both shoulders Obstructive sleep apnea Complian t with CPAP Family History Medical History Relation Name Comments Coronary artery disease Brother 3 1 Alex nary Artery Bypass Graft; Coronary artery disease Brother 4 2 Alex nary Artery Bypass Graft; Relation Name Status Comments Brother 1 1 Alive Brother 2 2 Alive Brother 3 1 Brother 4 2 Social History Tobacco Use Types Packs/Day Years Used Date Smoking Tobacco: Never Smokeless Tobacco: Never Tobacco Cessation:Counseling Given: Not Answered Alcohol Use Standard Drinks/Week Comments Yes 0 (1 standard drink = 0.6 oz pur e alcohol) Sex and Gender Information Value Date Recorded Sex Assigned at Not on file 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 Gender Identity Not on file Sexual Orientation Not on file Obstetrics History Last Filed Vital Signs Vital Sign Reading [...] 09/20/2023 9:30 AM CDT Plan of Treatment Health Maintenance Due Date Last Done Comments Depression Screening 1944 Fall Risk Assessment 1945 Hepatitis C Screening 1945 DTaP/Tdap/Td Vaccine (1 - Tdap) 08/26/1955 Hepatitis B Screening 1962 Well Visit 65+ 2009 Zoster Vaccine (2 of 3) 01/31/2013 12/06/2012 Pneumococcal vaccine 65+ (2 of 2 - PPSV23 or PCV20) 05/19/2017 03/24/2017 Influenza Vaccine (#1) 2023 04/26/2018, 2017 Insurance MEDICARE [facility] MEDICARE MEDICARE [facility] Advance Directives For more information, please contact: [phone] * Full Code (Latest Code Status on File) Date Activated Date Inactivated Comments 05/19/2018 9:19 PM * Full Code Date Activated Date Inactivated Comments 05/13/2018 2:28 PM 05/17/2018 3:24 PM * Full Code Date Activated Date Inactivated Comments 05/12/2018 7:13 PM 05/13/2018 2:28 PM Care Teams Grocery Clerk Relationship Specialty Start Date End Date Luis Enrique Hernandez MD [address] [facility] [address] [place] [address] PCP - General 02/07/12
[2024-04-17] MEDS: ASPIRIN 81 MG CHEWABLE TABLET 324 MG PO (21:54)
--- NOTE | 2024-04-17 21:55 | PC.NURSE ---
pt takes 1 baby asa daily. will only pull 3 asa 81mg tablets.
[2024-04-17 21:56] VITALS: BP 160/84; PULSE 96; RESP 20; TEMP 36.3; O2SAT 96
[2024-04-17 22:18] LABS: Basophils Percent Auto 0.6 % (0.2-1.2); Eosinophils Absolute Auto 0.1 K/mm3 (0-0.3); Eosinophils Percent Auto 0.9 % (0-4.4); Hematocrit 47.2 % (42.0-52.0); Hemoglobin 15.6 g/dL (14.0-18.0); Immature Granulocyte Absolute 0.02 K/mm3 (0.00-0.031); Immature Granulocyte Percent A 0.4 % (0-0.5); Lymphocytes Absolute Auto 0.49 K/mm3 (0.9-3.2); Lymphocytes Percent Auto 9.1 % (18.3-44.2); Mean Corpuscular HGB Conc 33.1 g/dl (32-36); Mean Corpuscular Hemoglobin 31.6 pg (26-34); Mean Corpuscular Volume 95.5 fl (80-100); Mean Platelet Volume 10.6 fl (7.4-10.4); Monocytes Absolute Auto 0.6 K/mm3 (0.1-0.6); Monocytes Percent Auto 10.8 % (2.6-8.5); Neutrophils Absolute Auto 4.2 K/mm3 (1.3-6.7); Neutrophils Percent Auto 78.2 % (45.5-73.1); Platelet Count Result 182 k/mm3 (150-375); Red Blood Count 4.94 M/mm3 (4.6-6.20); Red Cell Distribution Width 13.5 % (11.5-14.5); White Blood Count 5.4 K/mm3 (4.5-10.0)
[2024-04-17 22:29] LABS: Alanine Aminotransferase 31 U/L (6-50); Albumin Level 4.4 g/dL (3.5-5.1); Alkaline Phosphatase 60 U/L (38-126); Anion Gap 15 mmol/L (4-12); Aspartate Amino Transferase 32 U/L (17-59); Bilirubin,Total 0.7 mg/dL (0.2-1.3); Blood Urea Nitrogen 23 mg/dL (9-20); Calcium 9.2 mg/dL (8.4-10.2); Carbon Dioxide 19 mmol/L (22-30); Chloride 104 mmol/L (98-107); Estimated CRCL calculation 57 ml/min; Estimated Glomerular Filt Rate > 60; Glucose 147 mg/dL (65-110); Lipase 85 U/L (23-300); Potassium 4.1 mmol/L (3.4-5.0); Sodium 138 mmol/L (137-145)
[2024-04-17 22:36] LABS: Prothrombin Time 12.9 Seconds (11.1-14.7)
[2024-04-17 22:37] LABS: Partial Thromboplastin Time 26.2 Seconds (22.3-36.8)
[2024-04-17 22:39] LABS: Troponin I < 0.012 ng/mL (0.000-0.034)
[2024-04-17 22:58] LABS: Influenza A QL RT-PCR Positive (Negative); Influenza B QL RT-PCR Negative (Negative); RSV RNA, RT-PCR Negative (Negative); SARS-CoV-2 RNA PCR Negative (Negative)
[2024-04-18] VITALS (17 sets, daily range): BP systolic 124–141; BP diastolic 67–85; PULSE 94–101; RESP 21–33; O2SAT 90–95
--- NOTE | 2024-04-18 01:12 | ECG_ITS ---
Test Date: 2024-04-18 01:22:40 Measurements Intervals [place] Rate: 90 P: 22 RI: 165 QRS: -7 QRSD: 98 T: -6 QT: 346 QTc: 424 Interpretive Statements SINUS RHYTHM POSSIBLE LEFT ATRIAL ENLARGEMENT [-0.1mV P WAVE IN V1/V2] NONSPECIFIC ST AND T WAVE ABNORMALITY Compared to ECG 04/17/2024 21:54:37 NO SIGNIFICANT CHANGES Electronically Signed On 04-18-2024 15:57:03 OPERATIONS PLANT ATTENDANT by Heriberto Linares M.D.
--- OUTSIDE RECORDS SUMMARY | 2024-04-18 01:53 | XMS_ITS | Referral Summary ---
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 Gender Identity Not on file Sexual Orientation [...] of Treatment Not on file Insurance MEDICARE [facility] Address: [facility] [address] [place] [address] [facility] Advance Directives For more information, please contact: [phone] * Full Code (Latest Code Status on File) Date Activated Date Inactivated Comments 05/19/2018 9:19 PM * Full Code Date Activated Date Inactivated Comments 05/13/2018 2:28 PM 05/17/2018 3:24 PM * Full Code Date Activated Date Inactivated Comments 05/12/2018 7:13 PM 05/13/2018 2:28 PM Care Teams Transportation Assistant Relationship Specialty Start Date End Date Luis Enrique Hernandez MD [address] [place] [address] PCP - General 02/07/12
--- OUTSIDE RECORDS SUMMARY | 2024-04-18 01:53 | XMS_ITS | Clinical Summary ---
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 RELATIONS MANAGER Gender Identity Not on file Sexual Orientation [...] Vaccine (#1) 2023 04/26/2018, 2017 Insurance MEDICARE [facility] MEDICARE MEDICARE [facility] Advance Directives For more information, please contact: [phone] * Full Code (Latest Code Status on File) Date Activated Date Inactivated Comments 05/19/2018 9:19 PM * Full Code Date Activated Date Inactivated Comments 05/13/2018 2:28 PM 05/17/2018 3:24 PM * Full Code Date Activated Date Inactivated Comments 05/12/2018 7:13 PM 05/13/2018 2:28 PM Care Teams Advanced Manufacturing Consultant Relationship Specialty Start Date End Date Luis Enrique Hernandez MD [address] [facility] [address] [place] [address] PCP - General 02/07/12
[2024-04-18 01:57] LABS: Troponin I < 0.012 ng/mL (0.000-0.034)
--- NOTE | 2024-04-18 03:16 | ED.CHESTPAIN ---
HPI - Chest Pain General Chief Complaint: Chest Pain Stated Complaint: chest pain - open heart surgery 2019 Time Seen by Provider: 04/18/24 01:43 History of Present Illness HPI narrative: 78-year-old male with a past medical history significant for cardiac disease, hypertension, hyperlipidemia, CABG history. Today patient presents to the emergency room with vague abdominal discomfort, radiating from the right side of his chest towards his right abdomen. Chest pain only happens when he coughs. He has been coughing more frequently with nonproductive cough. Denies any difficulty breathing or substernal chest discomfort. No nausea, vomiting, diarrhea. He states he feels like he is pulling a muscle whenever he coughs or sneezes. Endorses sick contacts at home. Was otherwise in his normal state of health. Denies any increased leg swelling, recent injuries or hospital visits. Related Data Home Medications ?Medication ?Instructions ?Recorded ?Confirmed ?Last Taken ?Type aspirin 81 mg tablet,delayed 81 mg PO DAILY 03/27/19 01/25/24 01/11/20 History release (Adult Aspirin Regimen) 81 MG finasteride 5 mg tablet 5 mg PO DAILY 03/27/19 01/25/24 01/11/20 History 5 MG metoprolol tartrate 25 mg tablet 25 mg PO BID 03/27/19 01/25/24 01/11/20 History 25 MG Allergies Allergy/AdvReac Type Severity Reaction Status Date / Time venom-honey bee Allergy Severe HIVES Verified 04/17/24 21:56 atorvastatin Allergy Unknown Unknown Verified 04/17/24 21:56 Review of Systems Review of Systems: As reviewed above in [facility]PI [facility] Past Medical History Medical History Right knee DJD Obesity Old myocardial infarction Benign prostatic hyperplasia with lower urinary tract symptoms Coronary artery disease involving redding coronary artery of redding heart Hypertensive heart disease without congestive heart failure Idiopathic chronic gout, unspecified site, without tophus (tophi) LIZA on CPAP Pure hypercholesterolemia Status post placement of bare metal coronary artery stent Surgical History Surgical History S/P CABG (coronary artery bypass graft) Family History Family History Sibling Family history of diabetes mellitus in first degree relative Other Diabetes mellitus Social History Social History Smoking status: Never smoker Second hand tobacco smoke exposure: No Alcohol intake: current Drinks per week: 8 Substance use: never Substance use type: does not use Living arrangements: with family Occupation/Education: retired Gender identity (if verbalized by the patient): Male Sexual Orientation (if Verbalized by the Patient): Straight or Heterosexual Spiritual care concerns: No Exam Narrative: GENERAL: [Well-appearing, well-nourished, and in no acute distress.] HEAD: [Normocephalic, atraumatic.] EYES: [PERRLA and EOMI.] ENT: Nares clear, no rhinorrhea or epistaxis. Mucous membranes moist. NECK: Supple. CHEST: [Clear to auscultation. No respiratory distress.] HEART: [Regular rate and rhythm]. No murmur heard. [Normal peripheral pulses.] ABDOMEN: Protuberant abdomen but soft, minimally tender in the right-sided flank, [No rigidity or guarding] EXTREMITIES: Normal range of motion. [No edema.] SKIN: Warm, dry, no rash. NEURO: [No focal deficits]. Alert and oriented [x3.] PSYCH: [Normal mood and affect.] Course Vital Signs Vital signs: Vital Signs Temperature 36.3 C L 04/17/24 21:56 Pulse Rate 96 04/17/24 21:56 Respiratory Rate 20 04/17/24 21:56 Blood Pressure 160/84 H 04/17/24 21:56 Pulse Oximetry 96 04/17/24 21:56 Oxygen Delivery Room Air 04/17/24 21:56 Temperature 36.3 C L 04/17/24 21:56 Pulse Rate 94 04/18/24 02:54 Respiratory Rate 24 H 04/18/24 02:54 Blood Pressure 160/84 H 04/17/24 21:56 Pulse Oximetry 95 04/18/24 02:54 Oxygen Delivery Room Air 04/17/24 21:56 MDM - Chest Pain MDM Narrative Medical decision making narrative: 78-year-old male with cardiac history including CABG, hypertension, hyperlipidemia. Patient presents to the ER today with concerns of nonproductive cough that is causing him some chest and abdominal discomfort. Denies any nausea, vomiting, diarrhea. No chest pain at rest, no shortness of breath. Was otherwise in his normal state of health. He has a soft but protuberant abdomen, tender to palpation mildly in the right-sided flank area. Stable hypertension no tachycardia, no tachypnea, fever or hypoxia. Workup was ordered in triage. He did test positive for influenza a, no signs of ischemia on his EKG, negative troponin, no leukocytosis or anemia. Normal platelet count. Electrolytes largely unremarkable, normal renal function panel. Normal glucose and hepatic function panel. Chest x-ray shows no acute process. EKG with normal sinus rhythm, no ST segment elevations, depressions. CT of the thorax abdomen pelvis was ordered given his cardiac history and risk factors. Workup shows no leukocytosis or anemia. Normal platelet count. Normal coagulation studies. Electrolytes show some elevated anion gap and mild acidosis at 19 bicarb but otherwise no electrolyte derangements. Normal creatinine, slightly hyperglycemic, negative troponin x2, normal LFTs. Normal lipase. Influenza A positive. Chest x-ray with no acute cardiopulmonary disease. EKG shows sinus rhythm without any acute ischemic changes. CT of the chest abdomen pelvis shows very concerning findings and I was called to speak to the on-call radiologist Dr. Merino. Patient has a fractured costal cartilage anteriorly with displacement of the right 7th rib with associated active arterial prominent hemorrhage in the right chest wall with associated right-sided moderate hemorrhagic pleural collection/hemothorax. No associated pneumothorax. I went and re-evaluated the patient and pressed on the area in question and he is indeed tender in this area more severely than anywhere else. No overlying skin changes or bruises. He is adamant he did not fall or sustain any kind of significant trauma despite needing significant force or impact cause this type of fracture according to Radiology. Radiology was also concerned enough to recommend CT angiography images to characterize the arterial phase. Angiography studies were obtained and seem to show a lack of active extravasation on current study but persistent and possibly even enlarging right hemothorax given that there is now mediastinal shift to the left. Patient remains hemodynamically stable, no tachycardia, hypoxia or significant blood pressure concerns. Patient was made aware of his findings and will likely need emergent transfer to outside hospital/tertiary care center with vascular surgery, cardiothoracic surgery consultation. I spoke to the [facility] transfer system and made them aware of patient's presentation and need for transfer. Awaiting consultation with physician for transfer and recommendations. Recommendations from the cardiothoracic surgery team at [facility] were to emergently transfer him to the emergency department further evaluation and potential intervention. I spoke to the ER physician Dr. Albert coreas and made them aware of patient's presentation, clinical vital signs, CT imaging results and we will push the images to them. Patient accepted as a direct transfer, air evac will be arranged secondary to significant delays with ground transportation at this time after speaking with our staff and bakery sales clerk. Patient and family made aware of the emergent transfer and process and they were agreeable to transfer. Patient's pain is tolerable at this time and remains hemodynamically stable upon my repeat evaluations. Medical Records Data Attestation: I reviewed the patient's medical records. Lab Data Attestation: I reviewed the patient's lab results. 04/17/24 22:02 04/17/24 22:02 Labs: Lab Results 04/17/24 04/18/24 Range/Units 22:02 01:23 WBC 5.4 (4.5-10.0) K/mm3 RBC 4.94 (4.6-6.20) M/mm3 Hgb 15.6 (14.0-18.0) g/dL Hct 47.2 (42.0-52.0) % MCV 95.5 (80-100) fl MCH 31.6 (26-34) pg MCHC 33.1 (32-36) g/dl RDW 13.5 (11.5-14.5) % Plt Count 182 (150-375) k/mm3 MPV 10.6 H (7.4-10.4) fl Immature Gran % (Auto) 0.4 (0-0.5) % Neut % (Auto) 78.2 H (45.5-73.1) % Lymph % (Auto) 9.1 L (18.3-44.2) % [place] % (Auto) 10.8 H (2.6-8.5) % Eos % (Auto) 0.9 (0-4.4) % Baso % (Auto) 0.6 (0.2-1.2) % Lymph # (Auto) 0.49 L (0.9-3.2) K/mm3 [place] # (Auto) 0.6 (0.1-0.6) K/mm3 Eos # (Auto) 0.1 (0-0.3) K/mm3 Baso # (Auto) 0.0 (0.0-0.1) K/mm3 Abs Immat Gran (auto) 0.02 (0.00-0.031) K/mm3 Absolute Neuts (auto) 4.2 (1.3-6.7) K/mm3 Absolute Nucleated RBC 0.000 (0.0-0.012) K/mm3 Nucleated RBC % 0.0 (0.0-0.2) % PT 12.9 (11.1-14.7) Seconds INR 1.0 APTT 26.2 (22.3-36.8) Seconds Sodium 138 (137-145) mmol/L Potassium 4.1 (3.4-5.0) mmol/L Chloride 104 (98-107) mmol/L Carbon Dioxide 19 L (22-30) mmol/L Anion Gap 15 H (4-12) mmol/L BUN 23 H (9-20) mg/dL Creatinine 1.00 (0.7-1.3) mg/dL Estim Creat Clear Calc 57 ml/min Estimated GFR > 60 (59 - ) Glucose 147 H (65-110) mg/dL Calcium 9.2 (8.4-10.2) mg/dL Total Bilirubin 0.7 (0.2-1.3) mg/dL AST 32 (17-59) U/L ALT 31 (6-50) U/L Alkaline Phosphatase 60 (38-126) U/L Troponin I < 0.012 < 0.012 (0.000-0.034) ng/mL Total Protein 7.0 (6.3-8.2) g/dL Albumin 4.4 (3.5-5.1) g/dL Lipase 85 (23-300) U/L Influenza A (RT-PCR) Positive A (Negative) Influenza B (RT-PCR) Negative (Negative) RSV (RT-PCR) Negative (Negative) SARS-CoV-2 RNA (RT-PCR) Negative (Negative) Imaging Data Attestation: I personally reviewed and interpreted this imaging study as follows: My impression: Impressions Chest X-Ray 04/17/24 22:18 IMPRESSION: 1. No acute cardiopulmonary disease. Chest/Abdomen/Pelvis CT 04/18/24 05:43 IMPRESSION: 1. Right seventh costal cartilage displaced fracture anteriorly without evidence for associated chest wall hemorrhage. No evidence for active extravasation on the current study. No pneumothorax. 2: Moderate right hemothorax with mediastinal shift to the left. 3: No acute abdominal abnormality. Chest/Abdomen/Pelvis CTA 04/18/24 05:43 IMPRESSION: 1. Right seventh costal cartilage displaced fracture anteriorly without evidence for associated chest wall hemorrhage. No evidence for active extravasation on the current study. No pneumothorax. 2: Moderate right hemothorax with mediastinal shift to the left. 3: No acute abdominal abnormality. Critical Care Time Critical Care Time Critical Care Time: Yes Total Critical Care Time: 105 Discharge Plan Discharge Clinical Impression: Nontraumatic hemothorax, Fractured rib, Hematoma of right chest wall, Chest pain Patient Disposition: Acute Care Hospital Condition: Serious Patient Language: Scottish Prescriptions: No Action finasteride 5 mg tablet 5 mg PO DAILY aspirin [Adult Aspirin Regimen] 81 mg tablet,delayed release (DR/EC) 81 mg PO DAILY metoprolol tartrate 25 mg tablet 25 mg PO BID [place]govy 0.25 mg/0.5 mL pen injector 0.25 mg subcut WEEKLY Qty: 2 0RF Rx Instructions: administer weeks 1 through 4 of therapy clopidogrel 75 mg Tablet 75 mg PO QAM Qty: 30 1RF isosorbide mononitrate 60 mg Tablet Extended Release 24 Hr 60 mg PO QAM Qty: 30 1RF nitroglycerin [Nitrostat] 0.4 mg Tablet, Sublingual 0.4 mg sublingual Q5MIN PRN (Reason: Chest Pain) Qty: 25 0RF rosuvastatin [Crestor] 10 mg tablet 10 mg PO DAILY Qty: 90 3RF allopurinol 100 mg tablet 100 mg PO DAILY Qty: 90 2RF Follow-up/Referrals: Luis Enrique Hernandez MD [Primary Care Provider] - Time of Disposition: 06:38
[2024-04-18] MEDS: HYDROcodone/acetaminophen (*CRX) 5-325 MG TABLET 1 TAB PO (04:25)
== END 2024-04-18 06:59 | disposition short-term general hospital (02) ==
PROVIDERS: Emergency Provider Student in an Organized Health Care Education/Training Program; PCP Family Medicine
DX: J94.2 Hemothorax (principal); S22.31XA Fracture of one rib, right side, initial encounter for closed fracture; S20.211A Contusion of right front wall of thorax, initial encounter; J10.1 Influenza due to other identified influenza virus with other respiratory manifestations; Z20.822 Contact with and (suspected) exposure to COVID-19; I11.9 Hypertensive heart disease without heart failure; I25.2 Old myocardial infarction; E78.00 Pure hypercholesterolemia, unspecified; G47.33 Obstructive sleep apnea (adult) (pediatric); N40.1 Benign prostatic hyperplasia with lower urinary tract symptoms; M17.11 Unilateral primary osteoarthritis, right knee; Z95.1 Presence of aortocoronary bypass graft; Z95.5 Presence of coronary angioplasty implant and graft; Z79.82 Long term (current) use of aspirin; Z79.02 Long term (current) use of antithrombotics/antiplatelets; Z79.899 Other long term (current) drug therapy; R94.31 Abnormal electrocardiogram [ECG] [EKG]; X58.XXXA Exposure to other specified factors, initial encounter
CPT/HCPCS: 36415; 71046; 71260; 71275; 74174; 74177; 80053; 83690; 84484; 85025; 85610; 85730; 87637; 93005; 99291; A9270; Q9967

== ENCOUNTER 2024-06-18 09:11 | Outpatient (RCR) | payer MEDICARE, OTHER, SELFPAY ==
--- NOTE | 2024-06-18 10:00 | OPREHPOC ---
Outpatient Therapy Plan of Care This is a Multidisciplinary Plan of Care that may contain components documented by all disciplines (PT, OT, and ST.) PT Problem 1 PT Problem #1 Knowledge Deficit PT Goal 1 Goal / Goal Update *independent with HEP Target Visit 6 PT Problem 2 PT Problem #2 Pain PT Goal 1 Goal / Goal Update * monitor pain of R trunk/ribs, with increased activity level Target Visit 6 PT Problem 3 PT Problem #3 Impaired Strength PT Goal 1 Goal / Goal Update *increase strength of R and L LE's to improve mobility: 1* pt perform standing hip exercises with 1 UE support x 20 reps with good stability 2* single leg standing R and L x 20 seconds with 1 UE support 3* R and L sitting ankle circles x 20 reps with good control Target Visit 6
--- NOTE | 2024-06-18 10:00 | PTOPEVAL1 ---
Assessment and note entered by Neeta Alvares, PT Evaluation Information Assessment Status Evaluation ICD-10 Condition Codes (PT) Weakness R53.1 Other ICD-10 Condition Codes ( M62.81 generalized weakness PT) Onset Jan 2024 Subjective Information fall in January, few steps up on ladder, trimming a tree, landed on R side; did not realize- rib fracture; then got flu, and ill, coughed hard and rib fracture punctured lung; going to have surgery to repair rib fracture, not scheduled yet; also have R diaphragm issues- monitoring and surgery may include repair of diaphragm. orders for prehabilitation before surgery per pt- only restriction from dr is NO heavy lifting and to walk at least 5,000 steps at day activity: independent with home and self care tasks; home with ; is not doing lifting per dr. Reported Pain Level Pain Score Self Report Additional Pain Score Comments pain range in the past week 1-5/10; R trunk increase pain with sleeping and trying to get comfortable decrease pain: resting, change positions, ice Assessment PT Clinical Summary Umesh has the diagnosis of general weakness. He had a fall with rib fracture and going to have surgery to repair it. PT orders received to increase strength prior to surgery. He has been walking more and increasing his activity level. There has not been a history of falls, he is active and this one occurred with stepping down from a ladder and trimming a tree. Medical history includes CABG and chronic back & hip pain. With the evaluation: decreased strength of hip abduction and ankles-- bilateral; Del Cid balance score of 50/56-- issues with single leg standing activities; 6 minute walking test distance of 1200' with slight SOB; Skilled PT services are indicated to increase strength and balance, with education for HEP and activity progression. Plan of Care Interventions Neuro Re-education,Patient/Caregiver Education, Therapeutic Activities,Therapeutic Exercise PT Services Indicated Yes Treatment Frequency and 1x/wk for 6 visits---pt stated he would call to Duration schedule-- have other appt and going out of town These treatments will address the objective and functional deficits as defined above. The patient will be advanced safely and appropriately in order for the patient to progress towards his/her prior level of function. Additional exercises will be introduced and as well as a comprehensive home exercise program upon discharge, if needed, ?to ensure carryover of functional gains achieved in the clinic. This treatment plan has been reviewed and agreement upon by the patient.
--- NOTE | 2024-06-18 11:05 | PCPTNOTE ---
pt was 15 minutes late for evaluation appt today.
--- NOTE | 2024-08-02 15:16 | OPREHPOC ---
Outpatient Therapy Plan of Care This is a Multidisciplinary Plan of Care that may contain components documented by all disciplines (PT, OT, and ST.) PT Problem 1 PT Problem #1 Knowledge Deficit PT Goal 1 Goal / Goal Update *independent with HEP -------- 08-02-24 d/c goals were not addressed due to pt stopped attending therapy Target Visit 6 PT Problem 2 PT Problem #2 Pain PT Goal 1 Goal / Goal Update * monitor pain of R trunk/ribs, with increased activity level -------- 08-02-24 d/c goals were not addressed due to pt stopped attending therapy Target Visit 6 PT Problem 3 PT Problem #3 Impaired Strength PT Goal 1 Goal / Goal Update *increase strength of R and L LE's to improve mobility: 1* pt perform standing hip exercises with 1 UE support x 20 reps with good stability 2* single leg standing R and L x 20 seconds with 1 UE support 3* R and L sitting ankle circles x 20 reps with good control -------- 08-02-24 d/c goals were not addressed due to pt stopped attending therapy Target Visit 6
--- NOTE | 2024-08-02 15:16 | PTOPDC ---
Assessment and note entered by Neeta Alvares, PT Assessment Status Discharge - Pt Not Present ICD-10 Condition Codes (PT) Weakness R53.1 Other ICD-10 Condition Codes ( M62.81 generalized weakness PT) Onset Jan 2024 Subjective Information pt was not seen this date. Assessment PT Clinical Summary Art received the PT evaluation on June 18 and did not return for any further treatment. Discharge PT due to pt not attending. The goals were not addressed. Plan of Care PT Services Indicated No
== END 2024-08-02 16:47 | disposition home or self-care (01) ==
LOC: ANHPT 09:11
PROVIDERS: PCP Family Medicine
DX: M62.81 Muscle weakness (generalized) (principal)
CPT/HCPCS: 97110; 97161